=== PATIENT | male | born 1980 | race Caucasian/White ===

== ENCOUNTER → 2019-08-03 | Outpatient (CLI) | payer OTHER | LOC: LAB 07:13 | PROVIDERS: ATTEND Surgery | DX: Z53.9 Procedure and treatment not carried out, unspecified reason (principal) | CPT/HCPCS: 88304 ==

== ENCOUNTER 2020-07-10 19:30 | Outpatient (CLI) | payer OTHER | END 2020-07-10 23:59 | LOC: SC 19:30 | PROVIDERS: ATTEND Nurse Practitioner Family | DX: G47.33 Obstructive sleep apnea (adult) (pediatric) (principal) | CPT/HCPCS: 95806 ==

== ENCOUNTER 2020-07-29 08:09 | Outpatient (CLI) | payer OTHER ==
[2020-07-29 08:48] VITALS: BP 122/70
--- NOTE | 2020-07-29 08:48 | SLEEP CARE CONSULTATION ---
Information from patient questionnaire entered by Martha Avalos. I have reviewed and concur with the information entered by Martha Avalos. This document represents the service I personally performed and the decisions made by , Mary Montes ARNP. History of Present Illness Service Date and Time: 07/29/2020808 Initial Blevins Sleepiness Scale score: 15 (in 2019) Current Blevins Sleepiness Scale score: 16 Additional HPI information: SRIKANTH LARA returns for follow up and results of the recently performed home sleep study to verify his diagnosis so we may update his supplies and transfer DME. SRIKANTH LARA was diagnosed to have mild, AHI 5.8, obstructive sleep apnea- hypopnea syndrome with a debo oxygen saturation of 84.6%. He has been on CPAP but we were unable to obtain his previous study, thus we ordered a HST for verification so we may continue CPAP therapy care. Sleep Study - Results Type of Sleep Study: Home sleep study Prior sleep studies: Yes Year and Where: 03/2013 [facility] Polysomnography/Home Sleep Study results: SLEEP TIME AND EFFICIENCY: The sleep study recording began at 09:13:42 PM and ended at 03:23:28 AM. Total recording time was 369.8 minutes. The total sleep time was 309.0 minutes. The sleep efficiency was 83.6 percent. The patient spent 207.0 minutes supine, and spent 102.0 minutes non-supine. The patients own estimate of sleep time was 9.90 hours. RESPIRATORY DATA: The AHI in this report is indexed to sleep time based on actigraphy. The AASM defines this as KERI. The AHI on this type 3 Home Sleep Study may understate the AHI determined on a type 1 or 2 study, since EEG is not monitored resulting in the inability to score non-desaturating hypopneas. Based on 4% Calculation: The AHI4% calculation of 5.8 per hour of recording time was based on a total of 18 scored apneas and 12 scored hypopneas with 4% desaturations. Supine AHI4%: 8.4 per hour. Non-supine AHI4%: 0.6 per hour. Oxygen Summary: Patient's baseline O2 saturation was 96.5 %. The patient spent 0.6 minutes at an oxygen saturation less than 90%, and 0.1 minutes less than 85%. The desaturation index was 4.7 events per hour sleep time. The lowest saturation was 84.6 %. SNORING: The percent of the study time spent snoring was 0.2 %. The Snoring Count was 19 . The Snoring Index was 3.7 . PULSE RATE REVIEW: The mean heart rate was 60 beats per minute. The rate ranged from a low of 48 to a high of 84 beats per minute. Allergies and Home Medications Drug allergies reviewed: Yes (none) Home medication list reviewed: Yes (no changes) Review of Systems Review of systems same as previous: Yes (no changes) Physical Exam Blood Pressure: 122/70 Cuff size: long Heart Rate: 69 O2 Saturation: 98 Height: 5 ft 7 in Weight: 229 lb Body Mass Index: 35.9 BMI Classification: Obese Impression and Plan 1. Obstructive Sleep Apnea-Hypopnea Syndrome, mild, with lowest oxygen saturation of 84.6%. Patient diagnosis of mild obstructive sleep apnea verified with HST. He has been using CPAP with pressure at 5-20 cm H2O with good compliance and good apnea control. He needs supplies locally obtained as he is here from [place] and it is difficult to get home to obtain supplies while he is working here. I will write a prescription to transfer DME and update supplies as needed. I will change his autoCPAP pressure to 7-12 cm H2O because with last compliance download information reflected that his mean pressure was 6.8 cm H2O. His 90% average pressure was 8.6 cm H2O and his peak pressure was 12.0. I am only adjusting the range to what he is using on average so I think he may follow up in a year unless he has issues. Positive pressure therapy could benefit his acid reflux and depression/anxiety. * Transfer DME and update supplies * Change autoCPAP pressure to 7-12 cmH2O * Notify me if snoring with mask or feeling that the pressure is too much or too little * Attempt to lose weight * Call this office if any problems using CPAP * Return for follow up in 1 year, or sooner if concerns arise Visit Type: In Office Time Spent with Patient (minutes): 16 Provider Statement: I spent 100% of the Face to Face Visit with the patient with greater than 50% spent counseling the patient and coordination of care.
== END 2020-07-29 08:10 | disposition home or self-care (01) ==
LOC: SC 08:09
PROVIDERS: ATTEND Nurse Practitioner Family
DX: G47.33 Obstructive sleep apnea (adult) (pediatric) (principal); E66.9 Obesity, unspecified; Z68.35 Body mass index [BMI] 35.0-35.9, adult
CPT/HCPCS: 99212; 99213

== ENCOUNTER 2021-10-10 13:48 | Outpatient (CLI) | payer OTHER | END 2021-10-10 13:49 | disposition critical access hospital (66) | LOC: EMS 13:48 | DX: R52 Pain, unspecified (principal); R20.0 Anesthesia of skin | CPT/HCPCS: A0425; A0429 ==

== ENCOUNTER 2021-10-10 14:04 | Emergency (ER) | payer OTHER ==
[2021-10-10] MEDS ORDERED: MORPHINE 2 MG/ML CARPUJECT IVP STA (14:22)
[2021-10-10] MEDS ORDERED: IOPAMIDOL-300 100 ML VIAL ONE (14:30)
[2021-10-10 14:54] LABS: BASOPHILS # (AUTO) 0.1 10^3/uL (0.0-0.1); BASOPHILS % (AUTO) 0.6 %; EOSINOPHILS # (AUTO) 0.2 10^3/uL (0.0-0.7); EOSINOPHILS % (AUTO) 1.5 %; HCT - HEMATOCRIT 45.5 % (42.0-52.0); HGB - HEMOGLOBIN 15.6 g/dL (14.0-18.0); LYMPHOCYTES # (AUTO) 2.8 10^3/uL (1.5-3.5); LYMPHOCYTES % (AUTO) 28.4 %; MEAN CORPUSCULAR HEMOGLOBIN 29.8 pg (27.0-31.0); MEAN CORPUSCULAR HGB CONC 34.3 g/dL (32.0-36.0); MEAN PLATELET VOLUME 9.3 fL (7.4-11.4); MONOCYTES # (AUTO) 0.7 10^3/uL (0.0-1.0); MONOCYTES % (AUTO) 6.6 %; NEUTROPHILS # (AUTO) 6.1 10^3/uL (1.5-6.6); NEUTROPHILS % (AUTO) 62.6 %; PLT - PLATELET COUNT 186 10^3/uL (130-450); RED BLOOD COUNT 5.23 10^6/uL (4.70-6.10); RED CELL DISTRIBUTION WIDTH 12.9 % (12.0-15.0); WHITE BLOOD COUNT 9.8 x10^3/uL (4.8-10.8)
[2021-10-10 15:11] LABS: ALBUMIN 4.2 g/dL (3.2-5.5); ALBUMIN/GLOBULIN RATIO 1.4 (1.0-2.2); BILIRUBIN,TOTAL 0.6 mg/dL (0.2-1.0); CALCIUM 8.6 mg/dL (8.5-10.3); CREATININE 0.9 mg/dL (0.6-1.2); POTASSIUM 3.7 mmol/L (3.5-5.0); TOTAL PROTEIN 7.2 g/dL (6.7-8.2)
--- NOTE | 2021-10-10 15:11 | ED Physician Documentation ---
History of Present Illness - Stated complaint Stated Complaint: L FACE/LEG PX - Chief complaint Chief Complaint: General - History obtained from History obtained from: Patient - History of Present Illness Timing: How many hours ago (1) Pain level max: 7 Pain level now: 5 - Additonal information Additional information: Patient is a 41-year-old male who presents to the emergency department stating about an hour ago he had onset of pain to the left face, left shoulder, left leg. Worse with movement, better with rest. He states he had a panic attack 1 time that felt similar. Recently was changed from Wellbutrin to sertraline. Patient states occasionally he has tingling in the left lower extremity. No ba ck or neck pain. Review of Systems Constitutional: denies: Fever, Chills GI: denies: Abdominal Pain, Nausea, Vomiting, Diarrhea : denies: Dysuria Skin: denies: Rash Musculoskeletal: denies: Neck pain, Back pain Neurologic: denies: Headache PD PAST MEDICAL HISTORY - Past Medical History Past Medical History: Yes Cardiovascular: None Respiratory: Asthma Neuro: None Endocrine/Autoimmune: None GI: GERD : Kidney stones HEENT: None Psych: Anxiety, Post traumatic stress disorder Musculoskeletal: None Derm: None - Past Surgical History Past Surgical History: Yes Ortho: Shoulder arthroplasty, Arthroscopic surgery, Other - Present Medications Home Medications: Ambulatory Orders Medication Instructions Recorded Confirmed Albuterol Sulfate [Proair Hfa 1 - 2 puffs IH Q4HR PRN 10/10/21 10/10/21 Inhaler] Aspirin [Aspirin EC] 81 mg PO DAILY PRN 10/10/21 10/10/21 Pantoprazole [Protonix] 40 mg PO DAILY 10/10/21 10/10/21 Sertraline [Zoloft] 50 mg PO DAILY 10/10/21 10/10/21 - Allergies Allergies/Adverse Reactions: Allergies Allergy/AdvReac Type Severity Reaction Status Date / Time No Known Drug Allergies Allergy Verified 10/10/21 14:10 - Social History Does the pt smoke?: No Smoking Status: Former smoker Does the pt drink ETOH?: No Does the pt have substance abuse?: No - Immunizations Immunizations are current?: Yes PD ED PE NORMAL - Vitals Vital signs reviewed: Yes - General General: Alert and oriented X 3, No acute distress, Well developed/nourished - HEENT HEENT: PERRL, Ears normal, Moist mucous membranes - Neck Neck: Supple, no meningeal sign, No JVD, No bruit - Cardiac Cardiac: RRR, Strong equal pulses (in all 4 extremities.) - Respiratory Respiratory: No respiratory distress, Clear bilaterally - Abdomen Abdomen: Soft, Non tender, Non distended - Back Back: No CVA TTP, No spinal TTP - Derm Derm: Warm and dry - Extremities Extremities: No deformity, No edema, No calf tenderness / cord, Other (no crepitus, no skin changes) - Neuro Neuro: Alert and oriented X 3, executive casino host 2-12 intact, No motor deficit, No sensory deficit, Normal speech Eye Opening: Spontaneous Motor: Obeys Commands Verbal: Oriented GCS Score: 15 - Psych Psych: Normal mood, Normal affect Results - Vitals Vitals: Vital Signs - 24 hr 10/10/21 10/10/21 10/10/21 14:10 14:13 16:15 Temperature 36.7 C 36.7 C Heart Rate 82 82 84 Respiratory 16 16 17 Rate Blood Pressure 141/84 H 141/84 H 120/84 H O2 Saturation 98 98 98 10/10/21 17:21 Temperature Heart Rate 79 Respiratory 17 Rate Blood Pressure 149/109 H O2 Saturation 98 Oxygen O2 Source Room air - EKG (time done) 1441 Rate: Rate (enter#) (87) Rhythm: NSR [place]: Normal Intervals: Normal DE QRS: Normal Ischemia: Normal ST segments - Labs Labs: Laboratory Tests 10/10/21 10/10/21 10/10/21 14:49 14:49 14:49 WBC 9.8 RBC 5.23 Hgb 15.6 Hct 45.5 MCV 87.0 MCH 29.8 MCHC 34.3 RDW 12.9 Plt Count 186 MPV 9.3 Neut # (Auto) 6.1 Lymph # (Auto) 2.8 Fleming # (Auto) 0.7 Eos # (Auto) 0.2 Baso # (Auto) 0.1 Absolute Nucleated RBC 0.00 Nucleated RBC % 0.0 Sodium 137 Potassium 3.7 Chloride 103 Carbon Dioxide 24 Anion Gap 10.0 BUN 11 Creatinine 0.9 Estimated GFR (MDRD) 92 Glucose 150 H Calcium 8.6 Total Bilirubin 0.6 AST 26 ALT 44 Alkaline Phosphatase 77 Total Creatine Kinase 116 Troponin I High Sens 3.3 Total Protein 7.2 Albumin 4.2 Globulin 3.0 Albumin/Globulin Ratio 1.4 Lipase 33 10/10/21 16:46 WBC RBC Hgb Hct MCV MCH MCHC RDW Plt Count MPV Neut # (Auto) Lymph # (Auto) Fleming # (Auto) Eos # (Auto) Baso # (Auto) Absolute Nucleated RBC Nucleated RBC % Sodium Potassium Chloride Carbon Dioxide Anion Gap BUN Creatinine Estimated GFR (MDRD) Glucose Calcium Total Bilirubin AST ALT Alkaline Phosphatase Total Creatine Kinase 106 Troponin I High Sens Total Protein Albumin Globulin Albumin/Globulin Ratio Lipase - Rads (name of study) CT angio chest Radiology: Final report received, EMP read contemporaneously, See rad report CT angio abd/pelvis Radiology: Final report received, EMP read contemporaneously, See rad report PD MEDICAL DECISION MAKING - ED course Complexity details: reviewed results, re-evaluated patient, considered differential, d/w patient ED course: No acute findings on CT angiogram of the chest or abdomen pelvis. Pain well controlled in the emergency department. Unclear etiology of his pain. No significant lab abnormalities. Using his limbs freely in the emergency department. Normal neurological exam. No sensory deficits. No rashes. Normal EKG. Negative high-sensitivity troponin. We will continue Tylenol Motrin, have him follow-up with his doctor for further care. Patient counseled regarding signs and symptoms for which I believe and urgent re-evaluation would be necessary. Patient with good understanding of and agreement to plan and is comfortable going home at this time This document was made in part using voice recognition software. While efforts are made to proofread this document, sound alike and grammatical errors may occur. Departure - Departure Disposition: 01 Home, Self Care Clinical Impression: Acute pain Condition: Good Instructions: ED Acute Pain [facility] Follow-Up: CHANCE ESCALONA DO [Primary Care Provider] - Within 1 week Comments: The cause of your symptoms is unclear today. Your CT scans are normal. your blood work is normal. Please follow-up with your doctor for further care. I would utilize Motrin or Tylenol as needed for pain. Kalli may also help Discharge Date/Time: 10/10/21 17:26
--- NOTE | 2021-10-10 16:16 | CT Report ---
PROCEDURE: ANGIO CHEST W/WO INDICATIONS: chest/back/abd/Larm, L leg pain CONTRAST: IV CONTRAST: Optiray 320 ml: 100 PO CONTRAST: *NO PO CONTRAST TECHNIQUE: After the administration of intravenous contrast, 2 mm axial images were acquired from the pulmonary apices to the posterior costophrenic angles during the arterial phase. In addition, 1 mm lung kernel and 5 mm soft tissue kernel reconstructions were performed. 3-dimensional coronal oblique maximum int ensity projection (MIP) reformats, 8 mm axial MIP, and 5 mm coronal and sagittal MPR reformats were t hen performed through the thorax. For radiation dose reduction, the following was used: automated exp osure control, adjustment of mA and/or kV according to patient size. COMPARISON: None FINDINGS: Image quality: Excellent. Pulmonary arteries: Pulmonary arteries are normal in size, and demonstrate no intraluminal filling d efects to suggest central pulmonary embolism. Lungs and pleura: Lungs are clear. No pleural effusions or pneumothorax. Central and peripheral ai rways are patent. Mediastinum: Heart size is normal, without pericardial effusion. No mediastinal or hilar adenopathy . Thoracic aorta is normal in caliber and enhancement. No thoracic aortic dissection. Esophagus is n ormal in caliber, with a small hiatal hernia. Bones and chest wall: No suspicious bony lesions. Ribs and thoracic spine appear intact throughout. No axillary or supraclavicular adenopathy. The thyroid is normal in size and there are no incident al findings. Abdomen: Please refer to CT of abdomen and pelvis findings from the same day. IMPRESSION: 1. No thoracic aortic aneurysm or dissection. No gross pulmonary emboli. 2. Bilateral lungs are clear. 3. No mediastinal or hilar lymphadenopathy. Small hiatal hernia. CLINICAL RECOMMENDATION STATEMENTS: In patients <35 years with an ITN detected on CT, MRI, or extrathyroidal ultrasound, the Committee re commends further evaluation with dedicated thyroid ultrasound if the nodule is "e1 cm and has no susp icious imaging features, and if the patient has normal life expectancy. In patients "e35 years with an ITN detected on CT, MRI, or extrathyroidal ultrasound, the Committee r ecommends further evaluation with dedicated thyroid ultrasound if the nodule is "e1.5 cm and has no s uspicious imaging features, and if the patient has normal life expectancy. (ACR, 2014) Reviewed by: Last Nielsen MD on 10/10/2021 4:15 PM PST Approved by: Last Nielsen MD on 10/10/2021 4:15 PM PST Station ID: [id number]
--- NOTE | 2021-10-10 16:20 | CT Report ---
PROCEDURE: ANGIO ABDOMEN/PELVIS W INDICATIONS: chest/back/abd/Larm, L leg pain CONTRAST: IV CONTRAST: Optiray 320 ml: 100 PO CONTRAST: *NO PO CONTRAST TECHNIQUE: After the administration of intravenous contrast, 2 and 5 mm sections acquired from the diaphragm to the iliac crests. 3-dimensional maximum intensity projection (MIP) coronal and sagittal reformats, a nd/or 3-dimensional volume rendering reformatting was then performed. For radiation dose reduction, the following was used: automated exposure control, adjustment of mA and/or kV according to patient size. COMPARISON: None FINDINGS: Image quality: Excellent. Extravascular tissues: Lung bases are clear. Heart size is normal. There is moderate hepatic steatosis. No discrete hepatic lesion is seen. Spleen is borderline enlarge d and show normal contrast enhancement. Gallbladder is within normal limits Biliary system is non di lated. Pancreas enhances normally. No adrenal nodules. Kidneys are normal in size and enhancement, without hydronephrosis. There is suggestion of a tiny nonobstructing left renal calculus measures 2 mm in size. Non-opacified bowel loops demonstrate normal wall thickness and caliber. No free fluid o r air. No retroperitoneal or mesenteric adenopathy. No ventral hernias. No suspicious bony abnorma lities. No vertebral body compression fractures. Abdominal aorta: Abdominal aorta is normal in size and show normal contrast enhancement. No abdomina l aortic aneurysm or dissection. Mesenteric arteries: Celiac artery, superior and inferior mesenteric arteries and bilateral renal ar teries are well-opacified and show no hemodynamically significant stenosis. Bilateral iliac arteries and femoral arteries are well-opacified without hemodynamically significant stenosis. IMPRESSION: 1. No abdominal aortic aneurysm or dissection. No hemodynamically significant stenosis or noted in me senteric arteries and renal arteries. 2. No acute inflammatory process is seen in abdomen or pelvis. No free fluid or free air. Normal appe ndix. 3. Tiny nonobstructing left renal calculus. No hydronephrosis or hydroureter. 4. Moderate hepatic steatosis. Borderline splenomegaly, no discrete splenic lesion. Reviewed by: Last Nielsen MD on 10/10/2021 4:19 PM PST Approved by: Last Nielsen MD on 10/10/2021 4:19 PM PST Station ID: [id number]
[2021-10-10] MEDS ORDERED: IOPAMIDOL-300 100 ML VIAL IVP ONE (16:42)
[2021-10-10] MEDS ORDERED: KETOROLAC 30 MG/ML VIAL IVP STA (17:14)
[2021-10-10 17:25] VITALS: BP 149/109
== END 2021-10-10 17:26 | disposition home or self-care (01) ==
LOC: EDUNIT# → ED 14:04
DX: R52 Pain, unspecified (principal); Z87.891 Personal history of nicotine dependence
CPT/HCPCS: 36415; 71275; 74174; 80053; 82550; 83690; 84484; 85025; 93005; 96374; 96375; 99284; Q9967